=== PATIENT | female | born 1975 | race Caucasian/White ===

== ENCOUNTER 2024-06-19 21:16 | Emergency (ER) | payer OTHER ==
[2024-06-19] MEDS: HYDROmorphone 1 MG/ML Syringe IM ONE (22:26)
[2024-06-20] MEDS: Propofol 200 MG/20 ML SDV IVPUSH ONE (00:03)
[2024-06-20] MEDS: Sodium Chloride 0.9% 10 ML Syringe FLUSH PRN (00:11)
[2024-06-20] MEDS: HYDROmorphone 0.5 MG/0.5 ML Syringe IVPUSH ONE (00:39)
== END 2024-06-20 00:45 | disposition home or self-care (01) ==
LOC: JD.ED 21:16
DX: S82.842A Displaced bimalleolar fracture of left lower leg, initial encounter for closed fracture (principal); Z79.899 Other long term (current) drug therapy; X50.9XXA Other and unspecified overexertion or strenuous movements or postures, initial encounter; Y93.64 Activity, baseball
CPT/HCPCS: 27810; 73610; 96372; 96374; 99152; 99283; J1170; J2704; J3490; 99284